=== PATIENT | female | born 1985 ===

== ENCOUNTER 2025-04-14 05:17 | Day surgery (SDC) | payer OTHER ==
[2025-04-07 11:24] LABS: BASO % 0.7 % (0.1-1.2); EOS # 0.16 (0.04-0.54); EOS % 2.3 % (0.7-7.0); LYMPH # 2.42 (1.18-3.74); LYMPH % 34.5 % (19.3-53.1); MEAN PLATELET VOLUME 9.40 fl (9.4-12.4); MONO # 0.42 (0.24-0.82); MONO % 6.0 % (4.7-12.5); NEUT # 3.96 (1.56-6.13); NEUT % 56.4 % (34.0-71.1); RED CELL DISTRIBUTION WIDTH 11.9 % (11.6-14.4)
[2025-04-07 11:34] LABS: URINE APPEARANCE Clear; URINE BILIRRUBIN Negative (NEGATIVE); URINE BLOOD Negative; URINE COLOR Yellow; URINE GLUCOSE Negative (NEGATIVE); URINE KETONE Negative (NEGATIVE); URINE LEUKOCYTE Negative; URINE NITRATE Negative; URINE PROTEIN Negative (NEGATIVE); URINE UROBILINOGEN 0.2 E.U./dl
[2025-04-07 11:40] LABS: URINE BACTERIA 88.7 uL (0.0-1933); URINE EPITHELIAL CELLS 29.0 uL (0.0-38.8); URINE RBC 3.8 uL (0.0-20.8); URINE WBC 6.6 uL (0.0-23.2)
[2025-04-07 11:44] LABS: URINE CAST 0.43 uL (0.0-1.40)
[2025-04-07 12:01] LABS: ALT/SGPT 22.0 U/L (12-78); AST/SGOT 13.0 U/L (15-37); BILIRUBIN TOTAL 0.32 mg/dL (0.3-1.2); BUN CREA RATIO 25.0 (7.0-25.0); CREATININE SERUM 0.65 mg/dL (0.55-1.02); GFR 101.47; GLOBULINA 3.2 G/DL (2.4-3.5); GLUCOSE FASTING 92.0 mg/dL (65-100); INR 0.96; OSMOLALITY SERUM 284.0 MOSM/KG (275-295)
[2025-04-14] MEDS ORDERED: POVIDONE-IODINE 118 ML BOTT TOP ONE (08:30)
[2025-04-14] MEDS ORDERED: ONDANSETRON HCL 2 MG/ML VIAL IV ONE (08:55)
[2025-04-15] MEDS ORDERED: CEFAZOLIN SODIUM 1,000 MG VIAL IV ONE (14:00)
== END 2025-04-14 12:25 | disposition home or self-care (01) ==
LOC: CIR.AMB 05:17
PROVIDERS: ATTEND Obstetrics & Gynecology
DX: N85.01 Benign endometrial hyperplasia (principal); N93.8 Other specified abnormal uterine and vaginal bleeding